=== PATIENT | male | born 1955 | race Two or more races ===

== ENCOUNTER 2024-11-22 12:45 | Inpatient (IN) | payer OTHER ==
[~2024-11-22] VITALS: Ht 167.6 cm; Wt 88.5 kg
[2024-11-22] MEDS ORDERED: LEXAPRO5 MG PO (13:52)
[2024-11-22] MEDS ORDERED: NORVASC5 MG PO (13:57)
[2024-11-22] MEDS ORDERED: ATACAND32 MG PO (13:57)
[2024-11-22 13:59] VITALS: BP 147/82
[2024-11-22] MEDS ORDERED: INDAPAMIDE2.5 MG PO (14:48)
[2024-11-22 15:47] LABS: RH POSITIVE
[2024-12-02 07:16] LABS: CALCIUM 9.7 mg/dL (8.5-10.1); GFR 73.66; POTASSIUM 3.18 mEq/L (3.5-5.1)
[2024-12-02] MEDS ORDERED: CEFAZOLIN SODIUM 1,000 MG VIAL ONE (11:23)
[2024-12-02] MEDS ORDERED: ENOXAPARIN SODIUM 40 MG/0.4 ML SYRINGE SUBCUTANEO ONE (11:23)
[2024-12-02] MEDS ORDERED: CIPROFLOXACIN IN 5 % DEXTROSE 400 MG/200 ML PIGGYBAG IV ONE (11:33)
[2024-12-02] MEDS ORDERED: MANNITOL 0.2 GM/ML (500ML) IV.SOLN IV ONE (11:33)
[2024-12-02] MEDS ORDERED: GENTAMICIN SULFATE 40 MG/ML VIAL ONE (14:11)
[2024-12-02] MEDS ORDERED: VANCOMYCIN HCL 1,000 MG VIAL ONE (14:15)
[2024-12-02] MEDS ORDERED: SUGAMMADEX SODIUM 200 MG/2 ML VIAL IV ONE (15:40)
[2024-12-02] MEDS ORDERED: DEXTROSE 5 %-0.45 % SOD CHLORD 1,000 ML IV SCH (16:23)
[2024-12-02] MEDS ORDERED: ENALAPRILAT DIHYDRATE 1.25 MG/ML VIAL IV PRN (16:30)
[2024-12-02] MEDS ORDERED: ONDANSETRON HCL 2 MG/ML VIAL IV PRN (16:30)
[2024-12-02] MEDS ORDERED: MORPHINE SULFATE 2 MG/ML CARTRIDGE IV PRN (16:30)
[2024-12-02] MEDS ORDERED: MORPHINE SULFATE 4 MG/ML VIAL IV ONE ×3 (16:35→17:50)
[2024-12-02] MEDS ORDERED: DOCUSATE SODIUM 100MG CAP PO SCH (17:00)
[2024-12-02] MEDS ORDERED: SIMETHICONE 125 MG CAPSULE PO SCH (17:00)
[2024-12-02] MEDS ORDERED: FAMOtidine 20 MG TABLET PO SCH (17:00)
[2024-12-02 17:06] LABS: HEMATOCRIT 31.9 % (39.0-48.0); MEAN CORPUSCULAR HEMOGLOBIN 28.4 pg (27.00-32.0); MEAN CORPUSCULAR HGB CONC 34.6 g/dl (32.0-36.0); PLATELET COUNT 321 K/uL (150-450); RED BLOOD COUNT 3.88 M/uL (4.00-6.00); RED CELL DISTRIBUTION WIDTH 15.3 % (11.5-14.5)
[2024-12-02 17:27] LABS: CALCIUM 8.5 mg/dL (8.5-10.1); CREATININE SERUM 0.95 mg/dL (0.70-1.30); GFR 78.15
[2024-12-02 17:32] LABS: POTASSIUM 2.58 mEq/L (3.5-5.1)
[2024-12-02] MEDS ORDERED: POTASSIUM CHLORIDE IN WATER 40 MEQ/100 ML PIGGYBAG IV SCH (18:00)
[2024-12-02 19:16] VITALS: BP 132/82; O2SAT 99
[2024-12-02] MEDS ORDERED: MAGNESIUM SULFATE 50% 1,000 MG/2 ML VIAL IM STA (23:13)
[2024-12-02] MEDS ORDERED: CIPROFLOXACIN IN 5 % DEXTROSE 200 ML IV SCH (23:15)
[2024-12-03] MEDS ORDERED: VANCOMYCIN HCL 1,000 MG VIAL ONE ×3 (00:19→22:37)
[2024-12-03] MEDS ORDERED: CIPROFLOXACIN IN 5 % DEXTROSE 400 MG/200 ML PIGGYBAG IV ONE (00:19)
[2024-12-03] MEDS ORDERED: MAGNESIUM SULFATE/D5W 1GM/100ML PIGGYBAG IV ONE (00:19)
[2024-12-03 01:27] VITALS: BP 136/77; O2SAT 100
[2024-12-03 08:00] VITALS: BP 174/69; O2SAT 99
[2024-12-03] MEDS ORDERED: AMLODIPINE BESYLATE 5 MG TABLET PO SCH (09:00)
[2024-12-03] MEDS ORDERED: PATIENTS OWN MEDICATION (MEDICAMENTO EN PISO) PO SCH (09:00)
[2024-12-03] MEDS ORDERED: CANDESARTAN CILEXETIL 32 MG TABLET PO SCH (09:00)
[2024-12-03] MEDS ORDERED: VANCOMYCIN HCL 1,000 MG VIAL IV SCH ×2 (10:26→12:00)
[2024-12-03 10:45] LABS: HEMATOCRIT 28.2 % (39.0-48.0); HEMOGLOBIN 9.9 g/dL (13-16.00); MEAN CELL VOLUME 81.8 fL (80.0-100.00); MEAN CORPUSCULAR HEMOGLOBIN 28.9 pg (27.00-32.0); MEAN CORPUSCULAR HGB CONC 35.3 g/dl (32.0-36.0); PLATELET COUNT 250 K/uL (150-450); RED BLOOD COUNT 3.44 M/uL (4.00-6.00); RED CELL DISTRIBUTION WIDTH 15.8 % (11.5-14.5)
[2024-12-03 11:04] LABS: BILIRUBIN TOTAL 0.55 mg/dL (0.3-1.2); CALCIUM 7.8 mg/dL (8.5-10.1); CREATININE SERUM 1.27 mg/dL (0.70-1.30); GFR 55.9; GLOBULINA 2.7 G/DL (2.4-3.5); MAGNESIUM 1.8 mg/dL (1.8-2.4); TOTAL PROTEIN 5.7 gm/dL (6.4-8.2)
[2024-12-03 11:18] LABS: POTASSIUM 2.86 mEq/L (3.5-5.1)
[2024-12-03] MEDS ORDERED: POTASSIUM CHLORIDE 10 MEQ CAPSULE PO STA (11:50)
[2024-12-03 16:34] VITALS: BP 158/69; O2SAT 99
[2024-12-03] MEDS ORDERED: TAMSULOSIN HCL 0.4 MG CAP PO SCH (18:30)
[2024-12-04 00:42] VITALS: BP 139/65; O2SAT 100
[2024-12-04] MEDS ORDERED: VANCOMYCIN HCL 1,000 MG VIAL ONE ×2 (07:14→22:37)
[2024-12-04 08:00] VITALS: BP 151/79; O2SAT 96
[2024-12-04 08:06] LABS: ALBUMIN 2.8 gm/dL (3.4-5.0); BILIRUBIN TOTAL 0.53 mg/dL (0.3-1.2); CALCIUM 8.1 mg/dL (8.5-10.1); CREATININE SERUM 1.13 mg/dL (0.70-1.30); GFR 63.97; GLOBULINA 2.4 G/DL (2.4-3.5); MAGNESIUM 1.9 mg/dL (1.8-2.4); POTASSIUM 3.36 mEq/L (3.5-5.1); TOTAL PROTEIN 5.2 gm/dL (6.4-8.2)
[2024-12-04 08:07] LABS: HEMATOCRIT 24.4 % (39.0-48.0); MEAN CELL VOLUME 84.1 fL (80.0-100.00); MEAN CORPUSCULAR HEMOGLOBIN 29.5 pg (27.00-32.0); MEAN CORPUSCULAR HGB CONC 35.1 g/dl (32.0-36.0); PLATELET COUNT 178 K/uL (150-450); RED BLOOD COUNT 2.91 M/uL (4.00-6.00); RED CELL DISTRIBUTION WIDTH 15.7 % (11.5-14.5)
[2024-12-04 08:11] LABS: HEMOGLOBIN 8.6 g/dL (13-16.00)
[2024-12-04] MEDS ORDERED: Cyanocobalamin/Mecobalamin 1 TAB.SL SL SCH (09:40)
[2024-12-04] MEDS ORDERED: SOD FERRIC GLUC COMPLX/SUCROSE 62.5 MG in 0.9 % SODIUM CHLORIDE 50 ML IV SCH (09:40)
[2024-12-04] MEDS ORDERED: FOLIC ACID 1 MG TABLET PO SCH (09:40)
[2024-12-04] MEDS ORDERED: POTASSIUM CHLORIDE 20MEQ/100ML H2O PB IV NR (09:45)
[2024-12-04] MEDS ORDERED: FUROsemide 20 MG/2 ML VIAL IV SCH (13:30)
[2024-12-04 16:38] VITALS: BP 165/82; O2SAT 100
[2024-12-04] MEDS ORDERED: OxyCODONE HCL/APAP UD (PERCOCET) PO PRN (18:15)
[2024-12-04 20:54] LABS: HEMATOCRIT 29.3 % (39.0-48.0); HEMOGLOBIN 10.2 g/dL (13-16.00); MEAN CELL VOLUME 82.3 fL (80.0-100.00); MEAN CORPUSCULAR HEMOGLOBIN 28.6 pg (27.00-32.0); MEAN CORPUSCULAR HGB CONC 34.7 g/dl (32.0-36.0); PLATELET COUNT 193 K/uL (150-450); RED BLOOD COUNT 3.56 M/uL (4.00-6.00); RED CELL DISTRIBUTION WIDTH 15.7 % (11.5-14.5)
[2024-12-05 00:45] VITALS: BP 164/83; O2SAT 100
[2024-12-05 06:36] LABS: HEMATOCRIT 30.3 % (39.0-48.0); MEAN CELL VOLUME 81.1 fL (80.0-100.00); MEAN CORPUSCULAR HGB CONC 35.9 g/dl (32.0-36.0); RED BLOOD COUNT 3.73 M/uL (4.00-6.00); RED CELL DISTRIBUTION WIDTH 15.9 % (11.5-14.5)
[2024-12-05 06:50] LABS: CALCIUM 8.3 mg/dL (8.5-10.1); CREATININE SERUM 1.05 mg/dL (0.70-1.30); GFR 69.63
[2024-12-05 06:57] LABS: HEMOGLOBIN 10.9 g/dL (13-16.00); MEAN CORPUSCULAR HEMOGLOBIN 29.2 pg (27.00-32.0); PLATELET COUNT 197 K/uL (150-450)
[2024-12-05] MEDS ORDERED: VANCOMYCIN HCL 1,000 MG VIAL ONE (07:28)
[2024-12-05 07:29] LABS: POTASSIUM 2.76 mEq/L (3.5-5.1)
[2024-12-05] MEDS ORDERED: POTASSIUM CHLORIDE 10 MEQ CAPSULE PO STA (09:52)
== END 2024-12-05 10:50 | disposition home or self-care (01) | DRG 657 ==
LOC: O/R 12-02 05:51 → SURH 12-02 07:00
PROVIDERS: ADMIT Urology; ATTEND Urology
PROC: 0TB10ZZ Excision of Left Kidney, Open Approach (ICD-10-PCS; principal; 2024-12-02 07:00)
PROC: 30233N1 Transfusion of Nonautologous Red Blood Cells into Peripheral Vein, Percutaneous Approach (ICD-10-PCS; 2024-12-04)
DX: D30.02 Benign neoplasm of left kidney (principal); N11.9 Chronic tubulo-interstitial nephritis, unspecified; D64.89 Other specified anemias

== ENCOUNTER 2025-04-03 11:00 | Inpatient (IN) | payer OTHER ==
[~2025-04-03] VITALS: Ht 198.1 cm; Wt 83.5 kg
[~2025-04-03 11:00] MED LIST: ATACAND32 MG PO; INDAPAMIDE2.5 MG PO; LEXAPRO5 MG PO; NORVASC5 MG PO
[2025-04-03] MEDS ORDERED: SYNTHROID75 MCG PO (12:42)
[2025-04-03 12:47] VITALS: BP 117/74
[2025-04-07] MEDS ORDERED: ENOXAPARIN SODIUM 40 MG/0.4 ML SYRINGE SUBCUTANEO ONE (06:41)
[2025-04-07] MEDS ORDERED: CEFAZOLIN SODIUM 1,000 MG VIAL ONE ×2 (06:42→07:03)
[2025-04-07] MEDS ORDERED: CIPROFLOXACIN IN 5 % DEXTROSE 400 MG/200 ML PIGGYBAG IV ONE (08:29)
[2025-04-07] MEDS ORDERED: MANNITOL 0.2 GM/ML (500ML) IV.SOLN IV ONE (09:26)
[2025-04-07] MEDS ORDERED: BUPIVACAINE HCL/MPF 0.5% 30ML VIAL ONE (12:00)
[2025-04-07] MEDS ORDERED: DEXTROSE 5 %-0.45 % SOD CHLORD 1,000 ML IV SCH (12:36)
[2025-04-07] MEDS ORDERED: LEVOTHYROXINE SODIUM 75 MCG TABLET PO SCH (12:40)
[2025-04-07] MEDS ORDERED: MORPHINE SULFATE 4 MG/ML CARTRIDGE IV PRN (12:45)
[2025-04-07] MEDS ORDERED: ONDANSETRON HCL 2 MG/ML VIAL IV PRN (12:45)
[2025-04-07] MEDS ORDERED: SIMETHICONE 125 MG CAPSULE PO SCH (13:00)
[2025-04-07] MEDS ORDERED: MORPHINE SULFATE 4 MG/ML VIAL IV ONE (15:35)
[2025-04-07] MEDS ORDERED: ONDANSETRON HCL 2 MG/ML VIAL ONE (15:36)
[2025-04-07] MEDS ORDERED: ONDANSETRON HCL 2 MG/ML VIAL IV ONE (15:40)
[2025-04-07] MEDS ORDERED: FAMOtidine 20 MG TABLET PO SCH (17:00)
[2025-04-07] MEDS ORDERED: DOCUSATE SODIUM 100MG CAP PO SCH (17:00)
[2025-04-07 18:23] VITALS: BP 132/65; O2SAT 96
[2025-04-08] VITALS: BP 109/54
[2025-04-08 07:32] LABS: BASO % 0.2 % (0.1-1.2); LYMPH # 1.09 (1.18-3.74); LYMPH % 9.2 % (19.3-53.1); MEAN CORPUSCULAR HEMOGLOBIN 27.6 pg (25.6-32.2); MONO # 1.38 (0.24-0.82); MONO % 11.7 % (4.7-12.5); NEUT # 9.26 (1.56-6.13); NEUT % 78.6 % (34.0-71.1); PLATELET COUNT 202 K/uL (163-369); RED BLOOD COUNT 3.23 M/uL (4.63-6.08); RED CELL DISTRIBUTION WIDTH 15.5 % (11.6-14.4)
[2025-04-08 07:41] LABS: HEMATOCRIT 26.6 % (40.1-51.0); HEMOGLOBIN 8.9 g/dL (13.7-17.5)
[2025-04-08 08:14] LABS: CALCIUM 8.5 mg/dL (8.5-10.1); CREATININE SERUM 1.85 mg/dL (0.70-1.30); GFR 36.22; POTASSIUM 4.91 mEq/L (3.5-5.1)
[2025-04-08 08:22] VITALS: BP 127/66; O2SAT 97
[2025-04-08] MEDS ORDERED: CANDESARTAN CILEXETIL 32 MG TABLET PO SCH (09:00)
[2025-04-08] MEDS ORDERED: TAMSULOSIN HCL 0.4 MG CAP PO SCH (09:00)
[2025-04-08] MEDS ORDERED: PATIENTS OWN MEDICATION (MEDICAMENTO EN PISO) PO SCH (09:00)
[2025-04-08] MEDS ORDERED: Cyanocobalamin/Mecobalamin 1 TAB.SL SL SCH (10:33)
[2025-04-08] MEDS ORDERED: SOD FERRIC GLUC COMPLX/SUCROSE 62.5 MG in 0.9 % SODIUM CHLORIDE 50 ML IV SCH (10:33)
[2025-04-08] MEDS ORDERED: SOD FERRIC GLUC COMPLX/SUCROSE 62.5 MG/5 ML AMPUL IV ONE (10:36)
[2025-04-08] MEDS ORDERED: FUROsemide 20 MG/2 ML VIAL IV SCH (10:45)
[2025-04-08] MEDS ORDERED: 0.9 % SODIUM CHLORIDE 1,000 ML IV SCH (10:45)
[2025-04-08] MEDS ORDERED: DEXTROSE 5 %-0.45 % SOD CHLORD 1,000 ML IV SCH (11:16)
[2025-04-08 15:20] VITALS: BP 129/74; O2SAT 95
[2025-04-08] MEDS ORDERED: ENOXAPARIN SODIUM 30 MG/0.3 ML SYRINGE SUBCUTANEO SCH ×2 (17:00)
[2025-04-09] VITALS: BP 136/72; O2SAT 96
[2025-04-09 01:50] LABS: BASO % 0.1 % (0.1-1.2); HEMATOCRIT 27.3 % (40.1-51.0); HEMOGLOBIN 9.1 g/dL (13.7-17.5); LYMPH # 1.36 (1.18-3.74); LYMPH % 12.4 % (19.3-53.1); MONO # 1.41 (0.24-0.82); NEUT # 8.14 (1.56-6.13); NEUT % 74.1 % (34.0-71.1); PLATELET COUNT 153 K/uL (163-369); RED BLOOD COUNT 3.37 M/uL (4.63-6.08); RED CELL DISTRIBUTION WIDTH 15.6 % (11.6-14.4)
[2025-04-09 02:07] LABS: MONO % 12.9 % (4.7-12.5)
[2025-04-09 07:16] LABS: BASO % 0.2 % (0.1-1.2); EOS # 0.02 (0.04-0.54); EOS % 0.2 % (0.7-7.0); HEMOGLOBIN 9.2 g/dL (13.7-17.5); LYMPH # 0.96 (1.18-3.74); LYMPH % 9.7 % (19.3-53.1); MEAN CORPUSCULAR HEMOGLOBIN 28.6 pg (25.6-32.2); NEUT # 7.65 (1.56-6.13); NEUT % 77.3 % (34.0-71.1); PLATELET COUNT 161 K/uL (163-369); RED BLOOD COUNT 3.22 M/uL (4.63-6.08); RED CELL DISTRIBUTION WIDTH 15.6 % (11.6-14.4)
[2025-04-09 07:37] LABS: HEMATOCRIT 26.3 % (40.1-51.0); MONO % 12.1 % (4.7-12.5)
[2025-04-09 07:42] LABS: CREATININE SERUM 1.43 mg/dL (0.70-1.30); GFR 48.75; MAGNESIUM 1.8 mg/dL (1.8-2.4); POTASSIUM 4.19 mEq/L (3.5-5.1)
[2025-04-09 08:12] VITALS: BP 149/75; O2SAT 95
[2025-04-09] MEDS ORDERED: AMLODIPINE BESYLATE 5 MG TABLET PO SCH (09:00)
[2025-04-09] MEDS ORDERED: PANTOPRAZOLE SODIUM 40 MG TABLET.DR PO SCH (10:00)
[2025-04-09] MEDS ORDERED: POTASSIUM PHOS,M-BASIC-D-BASIC 3 MM/ML VIAL IV NR (12:00)
[2025-04-09 15:00] VITALS: BP 134/68; O2SAT 100
[2025-04-09] MEDS ORDERED: TRAMADOL HCL 50 MG TABLET PO STA (17:19)
[2025-04-09] MEDS ORDERED: TRAMADOL HCL 50 MG TABLET PO PRN (17:30)
[2025-04-09] MEDS ORDERED: ACETAMINOPHEN 500 MG GEL..CAP PO PRN (17:30)
[2025-04-10 01:00] VITALS: BP 118/60; O2SAT 92
[2025-04-10 06:45] LABS: BASO % 0.1 % (0.1-1.2); EOS # 0.11 (0.04-0.54); EOS % 1.3 % (0.7-7.0); LYMPH # 1.41 (1.18-3.74); LYMPH % 16.9 % (19.3-53.1); MEAN CORPUSCULAR HEMOGLOBIN 27.4 pg (25.6-32.2); MONO # 0.89 (0.24-0.82); MONO % 10.6 % (4.7-12.5); NEUT # 5.92 (1.56-6.13); NEUT % 70.9 % (34.0-71.1); PLATELET COUNT 133 K/uL (163-369); RED BLOOD COUNT 2.96 M/uL (4.63-6.08); RED CELL DISTRIBUTION WIDTH 15.4 % (11.6-14.4)
[2025-04-10 06:54] LABS: HEMATOCRIT 24.2 % (40.1-51.0); HEMOGLOBIN 8.1 g/dL (13.7-17.5)
[2025-04-10 07:15] LABS: CREATININE SERUM 1.4 mg/dL (0.70-1.30); GFR 49.96; POTASSIUM 4.13 mEq/L (3.5-5.1)
[2025-04-10 08:00] VITALS: BP 120/78; O2SAT 95
[2025-04-10 16:18] VITALS: BP 137/67; O2SAT 96
[2025-04-11 01:05] VITALS: BP 132/67; O2SAT 97
[2025-04-11 07:14] LABS: BASO % 0.3 % (0.1-1.2); EOS # 0.19 (0.04-0.54); EOS % 2.5 % (0.7-7.0); LYMPH # 1.39 (1.18-3.74); MEAN CORPUSCULAR HEMOGLOBIN 26.6 pg (25.6-32.2); MONO # 0.88 (0.24-0.82); MONO % 11.4 % (4.7-12.5); NEUT # 5.24 (1.56-6.13); NEUT % 67.5 % (34.0-71.1); PLATELET COUNT 163 K/uL (163-369); RED BLOOD COUNT 3.19 M/uL (4.63-6.08); RED CELL DISTRIBUTION WIDTH 14.9 % (11.6-14.4)
[2025-04-11 07:21] LABS: HEMATOCRIT 25.4 % (40.1-51.0); HEMOGLOBIN 8.5 g/dL (13.7-17.5)
[2025-04-11 08:58] VITALS: BP 125/71; O2SAT 97
== END 2025-04-11 16:53 | disposition home or self-care (01) | DRG 658 ==
LOC: SURH 04-07 07:00 → SURG 04-07 07:56 → O/R 04-07 07:56 → SURH 04-07 11:00 → SURG 04-07 13:01
PROVIDERS: Internal Medicine; Internal Medicine Geriatric Medicine; ADMIT Urology; ATTEND Urology
PROC: 0TB04ZZ Excision of Right Kidney, Percutaneous Endoscopic Approach (ICD-10-PCS; principal; 2025-04-07 07:00)
PROC: 30233N1 Transfusion of Nonautologous Red Blood Cells into Peripheral Vein, Percutaneous Approach (ICD-10-PCS; 2025-04-08)
PROC: BW21ZZZ Computerized Tomography (CT Scan) of Abdomen and Pelvis (ICD-10-PCS; 2025-04-10)
DX: C64.1 Malignant neoplasm of right kidney, except renal pelvis (principal); C64.2 Malignant neoplasm of left kidney, except renal pelvis; D64.9 Anemia, unspecified